=== PATIENT | female | born 1945 | race Caucasian/White ===

== ENCOUNTER 2016-07-23 14:35 | Emergency (ER) | payer MEDICARE, BC ==
[~2016-07-23] VITALS: Ht 162.6 cm; Wt 70.0 kg
[~2016-07-23 14:35] MED LIST: AMARYL2 MG PO; DUETACT 2 MG-301 TAB PO; JANUVIA100 MG PO
[2016-07-23 14:41] VITALS: TEMP 98.1
[2016-07-23] MEDS ORDERED: PRINIVIL10 MG PO (16:00)
[2016-07-23] MEDS ORDERED: ZOCOR 20MG20 MG PO (16:00)
[2016-07-23] MEDS ORDERED: GLUCOTROL 5M5 MG/TAB PO (16:00)
[2016-07-23] MEDS ORDERED: GLUCOPHAGE500 MG/TAB PO (16:00)
[2016-07-23] MEDS ORDERED: PLAVIX 300MG T300 MG PO (16:00)
[2016-07-23] MEDS ORDERED: TRADJENTA5 MG PO (16:00)
[2016-07-23 16:20] VITALS: BP 126/54; PULSE 79
== END 2016-07-23 16:20 | disposition home or self-care (01) ==
LOC: COL.ER 14:35
DX: S09.90XA Unspecified injury of head, initial encounter (principal); W01.198A Fall on same level from slipping, tripping and stumbling with subsequent striking against other object, initial encounter; Y92.512 Supermarket, store or market as the place of occurrence of the external cause; E11.9 Type 2 diabetes mellitus without complications; Z79.84 Long term (current) use of oral hypoglycemic drugs